=== PATIENT | male | born 1960 | race African-American/Black ===

== ENCOUNTER 2024-11-13 04:32 | Emergency (ER) | payer MEDICARE ==
[~2024-11-13] VITALS: Ht 182.9 cm; Wt 90.3 kg
[2024-11-13 04:36] VITALS: PULSE 79; RESP 18; TEMP 98.9
[2024-11-13] MEDS ORDERED: VENTOLIN HFA18 GM INH (05:08)
[2024-11-13] MEDS ORDERED: AZITHROMYCIN250 MG PO (05:08)
[2024-11-13] MEDS ORDERED: CORICIDIN HBP1 EAC3 PO (05:08)
[2024-11-13] MEDS: CEFTRIAXONE 1 GM VIAL IM ONE (05:09)
[2024-11-13] MEDS ORDERED: CEFDINIR300 MG PO (05:59)
[2024-11-13 06:03] VITALS: BP 138/80; PULSE 79; RESP 18; TEMP 98.9; O2SAT 97
== END 2024-11-13 06:07 | disposition home or self-care (01) ==
LOC: FSED 04:52
DX: R05.9 Cough, unspecified (principal); J18.9 Pneumonia, unspecified organism; J40 Bronchitis, not specified as acute or chronic; I10 Essential (primary) hypertension; E11.9 Type 2 diabetes mellitus without complications
CPT/HCPCS: 36415; 71046; 82948; 99284; J0696